=== PATIENT | female | born 1970 | race Caucasian/White ===

== ENCOUNTER 2017-02-10 20:50 | Emergency (ER) | payer OTHER ==
--- NOTE | 2017-02-10 21:28 | EDM.PDOC ---
[id number] 4d NUMBNESS LT ARM Time Seen by Provider: 02/10/17 21:18 Source of Information: Reports: Patient History Limitations: Reports: No Limitations - History of Present Illness INITIAL COMMENTS - FREE TEXT/NARRATIVE: Chief complaint: 46-year-old female presents to ER with her Patient has noticed numbness to her left upper arm and hand for the last week Over the last day noticed numbness into her left side of her neck History of present illness: Patient has noticed this for more than a week she works in a warehouse walking up and down, does not relate any injury. Denies any shortness of breath with this walking, denies any chest pain Family history: Grand father had [place] in his 50s Surgical history: Unremarkable Review of systems: HEENT: Denies any headaches no change in visual activity Denies any difficulty swallowing No recent illness Chest: No chest pain, no shortness breath Abdomen: Denies any changes in bowel habits no abdominal pain Extremities: No Concerns about other than the numbness to the left arm Examination: Well-developed well-nourished woman who speaks well. She speaks in full sentences without any shortness of breath. Answers questions appropriately. HEENT: Normocephalic, sinuses nontender, tympanic membranes without erythema, pharynx non- Erythematous, neck supple no nuchal rigidity, Chest: Clear to auscultation heart rate is rhythmical normal S1-S2. Good inspiratory expiratory effort. Abdomen: Slightly rounded, soft, nontender, normal active bowel sounds throughout all 4 quadrants, no rebound and no guarding Extremities: No peripheral edema, Augustus's test is normal on left hand, sensation was intact, radial pulse intact, skin warm and dry. Neurologic: Grossly intact, sensation is present, no weakness No cardiac markers have been identified for this numbness to the left side Diagnostics: EKG, C-spine x-ray, chest x-ray CBC Intervention: None Impression: Left side numbness Plan: Follow-up with neurology Referral has been placed for Dr. Delarosa Onset: Gradual Duration: Week(s): Location: Reports: Neck, Upper Extremity, Left no pain Pain Score (Numeric/FACES): 0 - Related Data Allergies Allergy/AdvReac Type Severity Reaction Status Date / Time Sulfa (Sulfonamide Allergy Hives Verified 02/10/17 20:58 Antibiotics) Home Meds: Home Meds Citalopram [Celexa] 1 tab PO DAILY 02/06/16 [History] Fexofenadine [Sydnie] 1 tab PO DAILY 02/06/16 [History] Past Medical History HEENT History: Reports: None Cardiovascular History: Reports: None Respiratory History: Reports: None Gastrointestinal History: Reports: None Genitourinary History: Reports: None [employer]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: Musculoskeletal History: Reports: None Neurological History: Reports: None Psychiatric History: Reports: Anxiety, Depression Endocrine/Metabolic History: Reports: None Hematologic History: Reports: None Immunologic History: Reports: None Oncologic (Cancer) History: Reports: None Dermatologic History: Reports: None - Infectious Disease History Infectious Disease History: Reports: None - Past Surgical History Head Surgeries/Procedures: Reports: None HEENT Surgical History: Reports: Eye Surgery Female Surgical History: Reports: Section Social & Family History - Family History Family Medical History: Noncontributory - Tobacco Use Smoking Status *Q: Never Smoker - Caffeine Use Caffeine Use: Reports: Tea - Recreational Drug Use Recreational Drug Use: No ED ROS GENERAL - Review of Systems Review Of Systems: ROS reveals no pertinent complaints other than HPI. ED EXAM, GENERAL - Physical Exam Exam: See Below (See dictation) EKG INTERPRETATION EKG Date: 02/10/17 Rhythm: NSR Rate (Beats/Min): 61 Comparison: NA - No Prior EKG Course - Vital Signs Last Recorded V/S: Last Vital Signs Temp 36.1 C 02/10/17 21:00 Pulse 60 02/10/17 21:00 Resp 18 02/10/17 21:00 BP 112/68 02/10/17 21:00 Pulse Ox 99 02/10/17 21:00 - Orders/Labs/Meds Orders: Active Orders 24 hr Category Date Time Status EKG Documentation Completion [RC] STAT Care 02/10/17 21:16 Active Cervical Spine 2V or 3V [CR] Stat Exams 02/10/17 21:17 Ordered Chest 1V Frontal [CR] Stat Exams 02/10/17 21:17 Ordered COMPREHENSIVE METABOLIC PN,CMP [CHEM] Stat Lab 02/10/17 21:29 Received Labs: Laboratory Tests 02/10/17 02/10/17 Range/Units 21:29 21:29 WBC 9.76 (4.0-11.0) K/uL RBC 4.48 (4.30-5.90) M/uL Hgb 13.5 (12.0-16.0) g/dL Hct 39.5 (36.0-46.0) % MCV 88.2 (80.0-98.0) fL MCH 30.1 (27.0-32.0) pg MCHC 34.2 (31.0-37.0) g/dL RDW Std Deviation 44.1 (28.0-62.0) fl RDW Coeff of Nyla 14 (11.0-15.0) % Plt Count 256 (150-400) K/uL MPV 10.10 (7.40-12.00) fL Neut % (Auto) 57.3 (48.0-80.0) % Lymph % (Auto) 32.9 (16.0-40.0) % Alger % (Auto) 6.0 (0.0-15.0) % Eos % (Auto) 3.4 (0.0-7.0) % Baso % (Auto) 0.4 (0.0-1.5) % Neut # (Auto) 5.6 (1.4-5.7) K/uL Lymph # (Auto) 3.2 H (0.6-2.4) K/uL Alger # (Auto) 0.6 (0.0-0.8) K/uL Eos # (Auto) 0.3 (0.0-0.7) K/uL Baso # (Auto) 0.0 (0.0-0.1) K/uL Nucleated RBC % 0.0 /100WBC Nucleated RBCs # 0 K/uL Troponin I < 0.10 (0.0-0.29) NG/ML Departure - Departure Time of Disposition: 21:53 Disposition: Home, Self-Care 01 Condition: Good Clinical Impression: Numbness and tingling - Discharge Information Referrals: PCP,None [Primary Care Provider] - Michelle Delarosa MD [Physician] - Forms: ED Department Discharge Additional Instructions: No gross abnormal findings were noted on your examination today You are encouraged to follow-up with your regular provider Referral has been made to Dr. Michelle Delarosa, neurologist her office is located in specialty clinic at the [facility] Please call for an [phone]. Should any worsening of symptoms shortness of breath chest pain or increasing numbness occur before your appointment please return for further evaluation - My Orders Last 24 Hours: My Active Orders 02/10/17 21:16 EKG Documentation Completion [RC] STAT 02/10/17 21:17 Cervical Spine 2V or 3V [CR] Stat Chest 1V Frontal [CR] Stat 02/10/17 21:29 COMPREHENSIVE METABOLIC PN,CMP [CHEM] Stat - Assessment/Plan Last 24 Hours: My Active Orders 02/10/17 21:16 EKG Documentation Completion [RC] STAT 02/10/17 21:17 Cervical Spine 2V or 3V [CR] Stat Chest 1V Frontal [CR] Stat 02/10/17 21:29 COMPREHENSIVE METABOLIC PN,CMP [CHEM] Stat
[2017-02-10 22:00] LABS: CHLORIDE,CL 106 mmol/L (98-110); SODIUM,NA 139 mmol/L (136-146)
[2017-02-10 22:36] VITALS: BP 110/67
--- NOTE | 2017-02-11 15:49 | CR ---
EXAM DATE: 02/10/17 PATIENT'S AGE: 46 Patient: ELGIN MOFFETT Facility: [place], [place] Site . Site : 1970 Study: XRay Spine Cervical [id number]/17/2017 9:55:07 PM Ordering Physician: Doctor Noriega Final Report: INDICATION: Left arm numbness TECHNIQUE: Cervical spine 3 view. COMPARISON: None FINDINGS: Bones: Alignment is normal. No fractures or significant bone lesions. Joints: Mild disk space narrowing C5-C6. Soft tissues: Unremarkable. IMPRESSION: Mild disc space narrowing C5-C6 otherwise unremarkable cervical spine. Dictated by Jamari Castillo MD @ 02/10/2017 9:58:57 PM Dictated by: Jamari Castillo MD @ 02/10/2017 21:59:02 (Electronic Signature) Report Signed by Proxy. MTDArmin
--- NOTE | 2017-02-11 15:49 | CR ---
EXAM DATE: 02/10/17 PATIENT'S AGE: 46 Patient: ELGIN MOFFETT Facility: [place], [place] Site . Site : 1970 Study: XRay Chest [id number]/17/2017 9:52:27 PM Ordering Physician: Doctor Noriega Final Report: INDICATION: Left arm and neck numbness TECHNIQUE: Chest 1 view. COMPARISON: None FINDINGS: Cardiovascular and mediastinum: Heart size and vasculature are normal in caliber and appearance. Mediastinum is within normal limits. Lungs and pleural space: Lungs are clear. No sign of infiltrate or mass. No sign of pleural effusion. No pneumothorax. Bones and soft tissues: No significant findings. IMPRESSION: Unremarkable chest. Dictated by Jamari Castillo MD @ 02/10/2017 9:57:36 PM Dictated by: Jamari Castillo MD @ 02/10/2017 21:57:41 (Electronic Signature) Report Signed by Proxy. [facility]ITAL[facility]
== END 2017-02-10 22:36 | disposition home or self-care (01) ==
LOC: MW.ED 20:50
DX: R20.0 Anesthesia of skin (principal); R20.2 Paresthesia of skin; F41.9 Anxiety disorder, unspecified; F32.9 Major depressive disorder, single episode, unspecified; Z88.2 Allergy status to sulfonamides; Z79.899 Other long term (current) drug therapy; Z98.890 Other specified postprocedural states
CPT/HCPCS: 36415; 71010; 71010-26; 72040; 72040-26; 80053; 84484; 85025; 93005; 99282; 99284-25

== ENCOUNTER 2018-03-06 12:07 | Day surgery (SDC) | payer OTHER ==
[~2018-03-06 12:07] MED LIST: Lactated Ringers 1,000 ML IV SCH; Lidocaine 2% 5 ML SDV ONE; Midazolam 1 MG/ML 2 ML SDV ONE; Propofol 200 MG/20 ML SDV ONE; Sodium Chloride 0.9% 10 ML Syringe FLUSH PRN; Sodium Chloride 0.9% 2.5 ML Syringe FLUSH PRN; fentaNYL 100 MCG/2 ML SDV ONE
--- NOTE | 2018-03-06 12:24 | PCM.PREANE ---
Preanesthetic Assessment - Anesthesia/Transfusion/Family Hx Anesthesia History: Prior Anesthesia Without Reaction Family History of Anesthesia Reaction: No Transfusion History: No Prior Transfusion(s) - Review of Systems General: No Symptoms Pulmonary: No Symptoms Cardiovascular: No Symptoms Gastrointestinal: No Symptoms Other: Reports: None - Physical Assessment NPO Status Date: 03/05/18 Height: 1.65 m Weight: 109.316 kg ASA Class: 2 Mental Status: Alert & Oriented x3 Airway Class: Mallampati = 1 Dentition: Reports: Normal Dentition ROM/Head Extension: Full Lungs: Clear to Auscultation, Normal Respiratory Effort Cardiovascular: Regular Rate, Regular Rhythm - Allergies Allergies/Adverse Reactions: Allergies Allergy/AdvReac Type Severity Reaction Status Date / Time Sulfa (Sulfonamide Allergy Hives Verified 03/01/18 09:36 Antibiotics) - Blood Blood Available: No - Anesthesia Plan Pre-Op Medication Ordered: None - Acknowledgements Anesthesia Type Planned: MAC Pt an Appropriate Candidate for the Planned Anesthesia: Yes Alternatives and Risks of Anesthesia Discussed w Pt/Guardian: Yes Pt/Guardian Understands and Agrees with Anesthesia Plan: Yes Additional Comments: PMH: mult sclerosis, not active now, anx/dep. PreAnesthesia Questionnaire HEENT History: Reports: None Other HEENT History: wears glasses/contact Cardiovascular History: Reports: None Respiratory History: Reports: None Other Respiratory History: allergy induced asthma Gastrointestinal History: Reports: None Genitourinary History: Reports: None [employer] History: Reports: Musculoskeletal History: Reports: None Other Musculoskeletal History: hx cracked ribs Neurological History: Reports: None Psychiatric History: Reports: Anxiety, Depression Endocrine/Metabolic History: Reports: None Hematologic History: Reports: None Immunologic History: Reports: None Oncologic (Cancer) History: Reports: None Dermatologic History: Reports: None - Infectious Disease History Infectious Disease History: Reports: None - Past Surgical History HEENT Surgical History: Reports: Eye Surgery - SUBSTANCE USE Smoking Status *Q: Never Smoker Recreational Drug Use History: No - HOME MEDS Home Medications: Home Meds Fexofenadine [Sydnie] 1 tab PO DAILY 02/06/16 [History] Albuterol Sulfate [Proventil Hfa] 1 - 2 puff INH ASDIRECTED PRN 02/15/18 [ History] Cholecalciferol (Vitamin D3) [Vitamin D3] 2,000 units PO DAILY 02/15/18 [History ] DULoxetine HCl [Cymbalta] 60 mg PO DAILY 02/15/18 [History] Diclofenac Sodium [Voltaren] 75 mg PO ASDIRECTED PRN 02/15/18 [History] Interferon Beta-1a/Albumin [Rebif Rebidose 22 Mcg/0.5 ml] 1 injection SUBCUT ASDIRECTED 02/15/18 [History] Pantoprazole Sodium [Protonix] 20 mg PO DAILY 02/15/18 [History] Triamcinolone Acetonide [Triamcinolone Acetonide 0.1% Crm] 1 applic TOP ASDIRECTED PRN 02/15/18 [History] - CURRENT (IN HOUSE) MEDS Current Meds: Current Medications Lactated Ringer's (Ringers, Lactated) 1,000 mls @ 125 mls/hr IV ASDIRECTED LUKE Sodium Chloride (Saline Flush) 10 ml FLUSH ASDIRECTED PRN PRN Reason: Keep Vein Open Sodium Chloride (Saline Flush) 2.5 ml FLUSH ASDIRECTED PRN PRN Reason: Keep Vein Open Sodium Chloride (Saline Flush) 10 ml FLUSH ASDIRECTED PRN PRN Reason: Keep Vein Open Sodium Chloride (Saline Flush) 2.5 ml FLUSH ASDIRECTED PRN PRN Reason: Keep Vein Open Discontinued Medications Fentanyl (Sublimaze) Confirm Administered Dose 100 mcg .ROUTE .STK-MED ONE Stop: 03/06/18 10:52 Lidocaine (Xylocaine-Mpf 2%) Confirm Administered Dose 5 ml .ROUTE .STK-MED ONE Stop: 03/06/18 10:52 Midazolam HCl (Versed 1 Mg/Ml) Confirm Administered Dose 2 mg .ROUTE .STK-MED ONE Stop: 03/06/18 10:52 Propofol (Diprivan 20 Ml) Confirm Administered Dose 400 mg .ROUTE .STK-MED ONE Stop: 03/06/18 10:52
[2018-03-06] MEDS ORDERED: Propofol 200 MG/20 ML SDV ONE (13:05)
--- NOTE | 2018-03-06 13:18 | PCM.OPNOTE ---
- General Post-Op/Procedure Note Date of Surgery/Procedure: 03/06/18 Operative Procedure(s): Diagnostic EGD and colonoscopy Findings: Normal EGD, descending colon polyp, sigmoid colon polyp x 3 Pre Op Diagnosis: Chagne in bowel habits, dysphagia. Post-Op Diagnosis: Dysphagia, descending colon polyp, sigmoid colon polyps x 3 Anesthesia Technique: MAC Primary Surgeon: Betzaida Jenkins Condition: Good
--- NOTE | 2018-03-06 13:34 | PCM.POSTAN ---
POST ANESTHESIA ASSESSMENT - MENTAL STATUS Mental Status: Alert, Oriented - RESPIRATORY Respiratory Status: Respiratory Rate WNL, Airway Patent, O2 Saturation Stable - CARDIOVASCULAR CV Status: Pulse Rate WNL, Blood Pressure Stable - GASTROINTESTINAL GI Status: No Symptoms - POST OP HYDRATION Hydration Status: Adequate & Stable
--- NOTE | 2018-03-06 13:35 | PCM48HPAN ---
Post Anesthesia Note - EVALUATION WITHIN 48HRS OF ANESTHETIC Vital Signs in Normal Range: Yes Patient Participated in Evaluation: Yes Respiratory Function Stable: Yes Airway Patent: Yes Cardiovascular Function Stable: Yes Hydration Status Stable: Yes Pain Control Satisfactory: Yes Nausea and Vomiting Control Satisfactory: Yes Mental Status Recovered: Yes Resp Rate: 12
[2018-03-06 13:57] VITALS: BP 112/61
--- NOTE | 2018-03-07 11:18 | OR ---
SURGEON: SCOTT SHAIKH MD DATE OF PROCEDURE: 03/06/2018 PREOPERATIVE DIAGNOSES: Change in bowel habits, dysphagia. POSTOPERATIVE DIAGNOSES: 1. Normal EGD. 2. Descending colon polyp. 3. Sigmoid colon polyps x3. PROCEDURE PERFORMED: Diagnostic EGD and colonoscopy. ANESTHESIA: MAC. INSTRUMENT USED: Olympus endoscope and colonoscope. EXTENT OF EXAM: To the second portion duodenum, to the cecum. PREPARATION: Good. LIMITATIONS: None. INDICATION FOR EXAMINATION: The patient is a 47-year-old female, who was recently diagnosed with multiple sclerosis. She has also had new onset of dysphagia and change in bowel habits. A preoperative esophagram was completed, which was normal. The decision was made to proceed with diagnostic EGD and colonoscopy. I explained the procedure, expected perioperative course, and risks including bleeding, infection, or damage to surrounding structures including perforation. The patient verbalized understanding and wishes to proceed. PROCEDURE IN DETAIL: The patient was brought to the endoscopy suite and placed in the left lateral decubitus position. A time-out was completed verifying the patient's name, age, date of , allergies, and procedure to be performed. A bite block was placed in the patient's mouth. Monitored anesthesia care was induced and continuous oxygen was provided via nasal cannula throughout the procedure. After adequate sedation was achieved, a well lubricated endoscope was placed in the patient's mouth and advanced under direct visualization to the second portion of duodenum. This appeared normal and a photograph was taken. The scope was then fully withdrawn while examining the color, texture, anatomy, and integrity mucosa of the upper GI tract. The duodenal mucosa appeared normal. The scope was brought in the stomach and a photograph taken the pylorus and GE junction. Both of these appeared normal. The gastric mucosa was free of inflammation or ulceration. Biopsies were taken of the gastric antrum, body, and fundus and sent for histologic review and H. pylori testing. The scope was then brought into the distal esophagus and a photograph was taken of the Z-line. This appeared normal. The esophageal mucosa was closely inspected and found to be free of any inflammation or ulceration. Scope was removed and this portion of the procedure was terminated. A digital rectal exam was then performed. This exam was within normal limits. A well lubricated colonoscope was inserted in the rectum and advanced under direct visualization to the level of the cecum. The cecum was identified by both visual and anatomic landmarks. A photograph was taken of the cecal cap, however, I was unable to retroflex the scope within the cecum due to looping of the scope more proximally. The scope was then fully withdrawn while examining the color, texture, anatomy, and integrity of the mucosa from the cecum to the anal canal. The patient was found to have one small polyp within the descending colon. This was removed in piecemeal fashion using a cold biopsy forceps. She was found to have two more sigmoid colon polyps which were small enough to be removed using a cold biopsy forceps. The distal-most sigmoid colon polyp was removed using a cold snare. There was a total of three sigmoid colon polyps. I reinspected my polypectomy sites and they appeared to be hemostatic. The scope was then brought into the rectum and retroflexed to allow visualization of the anal canal opening. This appeared normal and a photograph was taken. The scope was then straightened out and fully withdrawn. Cecum to anus time was 14 minutes. The patient tolerated the procedure well and was transferred to PACU in stable condition. ENDOSCOPIC DIAGNOSES: 1. Normal EGD. 2. Descending colon polyp. 3. Sigmoid colon polyps x3. RECOMMENDATIONS: Follow up in clinic in 2 weeks. SHERRON BARRAGAN /[id number]
== END 2018-03-06 13:59 | disposition home or self-care (01) ==
LOC: MW.SDS 12:07
PROVIDERS: ATTEND Surgery
DX: R19.4 Change in bowel habit (principal); R13.10 Dysphagia, unspecified; D12.5 Benign neoplasm of sigmoid colon; K63.5 Polyp of colon; G35 Multiple sclerosis; J30.9 Allergic rhinitis, unspecified; F41.9 Anxiety disorder, unspecified; F32.9 Major depressive disorder, single episode, unspecified; E55.9 Vitamin D deficiency, unspecified; Z88.2 Allergy status to sulfonamides; Z79.899 Other long term (current) drug therapy
CPT/HCPCS: 43239; 45380; 45385; J2250; J2704; J3010; J7120; 00813; 88305; 88312